=== PATIENT | male | born 1960 | race African-American/Black ===

== ENCOUNTER 2022-04-27 11:33 | Emergency (ER) | payer OTHER ==
[2022-04-27 11:59] VITALS: BP 163/93; PULSE 74; RESP 18; TEMP 98.8; BMI 25.8
[2022-04-27] MEDS ORDERED: KETOROLAC TROMETHAMINE 60 MG/2 ML VIAL IM ONE (13:36)
[2022-04-27] MEDS ORDERED: KETOROLAC TROMETHAMINE 30 MG/1 ML VIAL ONE (14:01)
== END 2022-04-27 15:49 | disposition home or self-care (01) ==
LOC: JERFT 11:33
PROC: 3E0233Z Introduction of Anti-inflammatory into Muscle, Percutaneous Approach (ICD-10-PCS; principal; 2022-04-27)
DX: M25.461 Effusion, right knee (principal)
CPT/HCPCS: 73562-TC-RT-FY; 73590-TC-RT-FY; 99284-25